=== PATIENT | male | born 2000 | race Two or more races ===

== ENCOUNTER 2024-04-02 08:57 | Inpatient (IN) | payer OTHER ==
[~2024-04-02] VITALS: Ht 170.2 cm; Wt 90.7 kg
[2024-04-02] MEDS ORDERED: FAMOTIDINE/PF 20 MG in 0.9 % SODIUM CHLORIDE 8 ML IV PUSH STA (09:21)
[2024-04-02] MEDS ORDERED: ONDANSETRON HCL 2 MG/ML VIAL IV ONE (09:30)
[2024-04-02] MEDS ORDERED: KETOROLAC TROMETHAMINE 30 MG VIAL IV ONE (09:30)
[2024-04-02] MEDS ORDERED: 0.9 % SODIUM CHLORIDE 1,000 ML IV SCH ×2 (09:30→13:00)
[2024-04-02 11:07] LABS: PLATELET COUNT 373 K/uL (150-450); RED CELL DISTRIBUTION WIDTH 13.9 % (11.5-14.5)
[2024-04-02 11:33] LABS: ALBUMIN 3.9 gm/dL (3.4-5.0); ALKALINE PHOSPHATASE 82 U/L (50-136); AMYLASE 67 U/L (25-115); ANION GAP 12 (10.0-20.0); BILIRUBIN TOTAL 1.08 mg/dL (0.3-1.2); CALCIUM 8.7 mg/dL (8.5-10.1); CARBON DIOXIDE 28 mEq/L (21-32); CHLORIDE 95 mmol/L (98-107); CREATININE SERUM 0.88 mg/dL (0.70-1.30); GFR 105.51; SODIUM 129 mmol/L (136-145)
[2024-04-02 11:36] LABS: LIPASE 2141 U/L (13-75)
[2024-04-02 11:40] LABS: GLUCOSE FASTING 447 mg/dL (65-100); POTASSIUM 5.52 mEq/L (3.5-5.1)
[2024-04-02 12:00] LABS: BLOOD UREA NITROGEN 8 mg/dL (7-18); BUN CREA RATIO 9 (7.0-25.0); OSMOLALITY SERUM 277 MOSM/KG (275-295)
[2024-04-02] MEDS ORDERED: INSULIN REGULAR, HUMAN 1,000 UNIT/10 ML UNITS IV NR (12:00)
[2024-04-02] MEDS ORDERED: INSULIN LISPRO 1,000 UNIT/10 ML UNITS SUBCUTANEO PRN ×2 (12:00→13:30)
[2024-04-02] MEDS ORDERED: DEXTROSE 50 % IN WATER 0.5 G/ML DISP.SYRIN IV SCH (12:00)
[2024-04-02 12:11] LABS: RED BLOOD COUNT 4.79 M/uL (4.00-6.00)
[2024-04-02 12:12] LABS: HEMATOCRIT 38.5 % (39.0-48.0)
[2024-04-02 12:14] LABS: MEAN CELL VOLUME 80.5 fL (80.0-100.00); MEAN CORPUSCULAR HGB CONC 34.8 g/dl (32.0-36.0)
[2024-04-02 12:15] LABS: HEMOGLOBIN 13.4 g/dL (13-16.00); MEAN CORPUSCULAR HEMOGLOBIN 27.9 pg (27.00-32.0)
[2024-04-02 12:57] LABS: ABG PO2 85.8 mmHg (80-100); ABG pCO2 41.3 mmHg (35-45); BASE EXCESS -2.5 mmol/l; BICARBONATE 22.8 mmol/l (23-25); SaO2 95.9 %; Tco2 24.1 mmol/l
[2024-04-02 12:58] LABS: allen test SATISFACTORY; o2 21 %; puncture site RADIAL LEFT
[2024-04-02] MEDS ORDERED: LOSARTAN POTASSIUM 25 MG TABLET PO SCH (13:14)
[2024-04-02] MEDS ORDERED: PANTOPRAZOLE SODIUM 40 MG/VIAL VIAL IV PUSH SCH (13:14)
[2024-04-02] MEDS ORDERED: ONDANSETRON HCL 4 MG in DEXTROSE 5 % IN WATER 50 ML IV PRN (13:15)
[2024-04-02] MEDS ORDERED: ACETAMINOPHEN 500 MG GEL..CAP PO PRN (13:15)
[2024-04-02] MEDS ORDERED: MEPERIDINE HCL 25 MG/ML AMPUL IM PRN (13:15)
[2024-04-02] MEDS ORDERED: DEXTROSE 50 % IN WATER 0.5 G/ML DISP.SYRIN IV PRN ×2 (13:30→19:30)
[2024-04-02 13:55] LABS: CHOL HDL RATIO 9.8 (0-5.0)
[2024-04-02] MEDS ORDERED: SIMVASTATIN 10 MG TABLET PO SCH (17:00)
[2024-04-02] MEDS ORDERED: INSULIN GLARGINE,HUM.REC.ANLOG 1,000 UNITS/10 ML UNITS SUBCUTANEO SCH (21:00)
[2024-04-03 05:15] LABS: HEMATOCRIT 39.8 % (39.0-48.0); HEMOGLOBIN 13.7 g/dL (13-16.00); MEAN CELL VOLUME 80.5 fL (80.0-100.00); MEAN CORPUSCULAR HEMOGLOBIN 27.7 pg (27.00-32.0); MEAN CORPUSCULAR HGB CONC 34.4 g/dl (32.0-36.0); PLATELET COUNT 323 K/uL (150-450); RED BLOOD COUNT 4.95 M/uL (4.00-6.00); RED CELL DISTRIBUTION WIDTH 13.8 % (11.5-14.5)
[2024-04-03 06:06] LABS: ALBUMIN 3.4 gm/dL (3.4-5.0); BILIRUBIN TOTAL 0.78 mg/dL (0.3-1.2); BILIRUBIN,CONJUGATED 0.14 mg/dL (0.0-0.2); BILIRUBIN,UNCONJUGATED 0.64 mg/dL (0.0-0.6); CALCIUM 8.5 mg/dL (8.5-10.1); CREATININE SERUM 0.64 mg/dL (0.70-1.30); GFR 152.38; MAGNESIUM 1.9 mg/dL (1.8-2.4); PHOSPHOROUS 3.3 mg/dL (2.5-4.9); POTASSIUM 3.49 mEq/L (3.5-5.1); T4 FREE 0.88 NG/ML (0.76-1.46); TOTAL PROTEIN 6.9 gm/dL (6.4-8.2)
[2024-04-03 06:29] LABS: CHOL HDL RATIO 9.2 (0-5.0)
[2024-04-03 06:30] LABS: C-REACTIVE PROTEIN 16.4 MG/DL (0.00-0.29); TSH 0.277 uIU/mL (0.358-3.74)
[2024-04-03] MEDS ORDERED: MORPHINE SULFATE 4 MG/ML CARTRIDGE IV PRN (15:15)
[2024-04-04 07:07] LABS: INSULIN LEVELS 3.5 uIU/mL (2.6-24.9)
[2024-04-04 07:31] LABS: HEMATOCRIT 37.8 % (39.0-48.0); HEMOGLOBIN 12.8 g/dL (13-16.00); MEAN CELL VOLUME 81.4 fL (80.0-100.00); MEAN CORPUSCULAR HEMOGLOBIN 27.6 pg (27.00-32.0); MEAN CORPUSCULAR HGB CONC 33.9 g/dl (32.0-36.0); PLATELET COUNT 275 K/uL (150-450); RED BLOOD COUNT 4.65 M/uL (4.00-6.00); RED CELL DISTRIBUTION WIDTH 13.7 % (11.5-14.5)
[2024-04-04 07:55] LABS: CALCIUM 8.5 mg/dL (8.5-10.1); CREATININE SERUM 0.68 mg/dL (0.70-1.30); GFR 142.08; POTASSIUM 3.68 mEq/L (3.5-5.1)
[2024-04-04] MEDS ORDERED: ** NF ** (JARDIANCE 10 MG) PO SCH (12:06)
[2024-04-04 13:12] LABS: gliadin iga 15 units (0-19); gliadin igg 8 units (0-19)
[2024-04-04] MEDS ORDERED: TRILIPIX PO SCH (17:00)
[2024-04-04] MEDS ORDERED: OMEGA-3 ACID ETHYL ESTERS 1 GM CAPSULE PO SCH (17:00)
[2024-04-04] MEDS ORDERED: INSULIN GLARGINE,HUM.REC.ANLOG 1,000 UNITS/10 ML UNITS SUBCUTANEO SCH (21:00)
[2024-04-05 06:14] LABS: HEMATOCRIT 35.1 % (39.0-48.0); HEMOGLOBIN 11.9 g/dL (13-16.00); MEAN CELL VOLUME 81.7 fL (80.0-100.00); MEAN CORPUSCULAR HEMOGLOBIN 27.6 pg (27.00-32.0); MEAN CORPUSCULAR HGB CONC 33.8 g/dl (32.0-36.0); PLATELET COUNT 281 K/uL (150-450); RED BLOOD COUNT 4.29 M/uL (4.00-6.00); RED CELL DISTRIBUTION WIDTH 13.6 % (11.5-14.5)
[2024-04-05 06:52] LABS: CALCIUM 8.6 mg/dL (8.5-10.1); CREATININE SERUM 0.54 mg/dL (0.70-1.30); GFR 185.38; POTASSIUM 3.48 mEq/L (3.5-5.1)
[2024-04-05 15:00] LABS: HEMATOCRIT 34.1 % (39.0-48.0); HEMOGLOBIN 11.5 g/dL (13-16.00); MEAN CELL VOLUME 80.2 fL (80.0-100.00); MEAN CORPUSCULAR HGB CONC 33.7 g/dl (32.0-36.0); PLATELET COUNT 294 K/uL (150-450); RED BLOOD COUNT 4.25 M/uL (4.00-6.00); RED CELL DISTRIBUTION WIDTH 13.7 % (11.5-14.5)
[2024-04-05 15:11] LABS: PANCREATIC ISLET CELL Negative (Neg:<1:1)
[2024-04-05 15:36] LABS: CALCIUM 8.6 mg/dL (8.5-10.1); CREATININE SERUM 0.6 mg/dL (0.70-1.30); GFR 164.16; POTASSIUM 3.49 mEq/L (3.5-5.1)
[2024-04-05] MEDS ORDERED: INSULIN GLARGINE,HUM.REC.ANLOG 1,000 UNITS/10 ML UNITS SUBCUTANEO SCH (21:00)
[2024-04-06] MEDS ORDERED: INSULIN LISPRO 1,000 UNIT/10 ML UNITS SUBCUTANEO SCH (08:00)
[2024-04-06 09:13] LABS: APOLIPOPROTEINA A1 94 mg/dL (101-178); APOLIPOPROTEINA B 91 mg/dL (<90)
[2024-04-06 17:06] LABS: GLUTAMIC ACID DECARBOXYLASE < 5.0 U/mL (0.0-5.0)
[2024-04-06] MEDS ORDERED: INSULIN GLARGINE,HUM.REC.ANLOG 1,000 UNITS/10 ML UNITS SUBCUTANEO SCH (21:00)
[2024-04-06] MEDS ORDERED: LACTOBACILLUS ACIDOPHILUS 1 CAP CAP PO SCH (21:00)
[2024-04-08 07:56] LABS: AMYLASE 33 U/L (25-115)
[2024-04-08 08:08] LABS: LIPASE 475 U/L (13-75)
[2024-04-08 08:17] LABS: HEMATOCRIT 32.2 % (39.0-48.0); HEMOGLOBIN 11.2 g/dL (13-16.00); MEAN CELL VOLUME 81.3 fL (80.0-100.00); MEAN CORPUSCULAR HEMOGLOBIN 28.3 pg (27.00-32.0); MEAN CORPUSCULAR HGB CONC 34.8 g/dl (32.0-36.0); PLATELET COUNT 357 K/uL (150-450); RED BLOOD COUNT 3.97 M/uL (4.00-6.00); RED CELL DISTRIBUTION WIDTH 13.4 % (11.5-14.5)
[2024-04-13 15:07] LABS: I AB < 5.0 uU/mL (.)
== END 2024-04-08 14:19 | disposition home or self-care (01) | DRG 440 ==
LOC: ER 08:58 → MEDI 14:13 → SEC-K 14:13 → MEDI 16:14
PROVIDERS: General Practice; Internal Medicine; Internal Medicine Endocrinology, Diabetes & Metabolism; ADMIT Internal Medicine; ATTEND Internal Medicine
PROC: BW21ZZZ Computerized Tomography (CT Scan) of Abdomen and Pelvis (ICD-10-PCS; principal; 2024-04-02)
PROC: BW40ZZZ Ultrasonography of Abdomen (ICD-10-PCS; 2024-04-02)
DX: K85.90 Acute pancreatitis without necrosis or infection, unspecified (principal); E11.65 Type 2 diabetes mellitus with hyperglycemia; E78.1 Pure hyperglyceridemia